=== PATIENT | female | born 1970 | race Caucasian/White ===

== ENCOUNTER 2016-09-28 10:04 | Emergency (ER) | payer MEDICAID ==
[~2016-09-28] VITALS: Wt 51.0 kg
[2016-09-28] MEDS ORDERED: ACYC800T57 PO (10:42)
[2016-09-28] MEDS ORDERED: TRAM-40 PO (10:42)
[2016-09-28] MEDS ORDERED: IBUP400T22 PO (10:42)
--- NOTE | 2016-09-28 10:45 | ERD ---
ER Documentation Chief Complaint Date/Time DATE: 09/28/16 TIME: 10:44 Chief Complaint left side chest and back pain from rash noted onset yesterday HPI This 46-year-old female has had left upper back pain and a rash progressing over the last 2 days. She denies fevers, vomiting, shortness breath or chest pain. ROS All systems reviewed and are negative except as per history of present illness. Medications Home Meds Active Scripts Ibuprofen* (Motrin*) 400 Mg Tab, 400 MG PO Q6H Y for PAIN, #20 TAB Prov:NORMAN STOREY MD 09/28/16 Tramadol Hcl* (Ultram*) 50 Mg Tablet, 50 MG PO Q6H Y for PAIN, #20 TAB Prov:NORMAN STOREY MD 09/28/16 Acyclovir* (Zovirax*) 800 Mg Tablet, 800 MG PO 5 TIMES DAILY for 7 Days, TAB Prov:NORMAN STOREY MD 09/28/16 PMhx/Soc Medical and Surgical Hx: pt denies Medical Hx, pt denies Surgical Hx Hx Alcohol Use: No Hx Substance Use: No Hx Tobacco Use: No Physical Exam Vitals Vital Signs Date Time Temp Pulse Resp B/P Pulse Ox O2 Delivery O2 Flow Rate FiO2 09/28/16 10:08 98.8 80 21 140/81 98 Physical Exam Const: [] Alert, [id number]. Head: Atraumatic Eyes: Normal Conjunctiva ENT: Normal External Ears, Nose and Mouth. Neck: Full range of motion..~ No meningismus. Resp: Clear to auscultation bilaterally Cardio: Regular rate and rhythm, no murmurs Abd: Soft, non tender, non distended. Normal bowel sounds Skin: No petechiae or purpura. There is a vesicular dermatomal rash in the left upper back. There is no streaking or induration. Back: No midline or flank tenderness Ext: No cyanosis, or edema Neur: Awake and alert Psych: Normal Mood and Affect Procedures/MDM Patient signs and symptoms of incompetent herpes zoster. She will treated with tramadol, acyclovir and ibuprofen. The patient was stable with no new complaints during the ER course. Clinically, there is no current evidence to suggest meningitis, sepsis, acute abdomen, pneumonia, acute coronary syndrome, pulmonary embolism, or any other emergent condition appearing to require further evaluation or hospitalization. The patient should certainly return for any new or worsening symptoms per the aftercare instructions. They should otherwise follow-up with her primary care doctor for reevaluation this week. Departure Diagnosis: Primary Impression: Zoster Herpes zoster complications: without complications Qualified Code: B02.9 - Herpes zoster without complication Condition: Stable Patient Instructions: Herpes Zoster Additional Instructions: Recheck for new or worsening symptoms or primary care doctor. NORMAN STOREY MD Sep 28, 2016 10:45
== END 2016-09-28 10:52 | disposition home or self-care (01) ==
LOC: FTE 10:04
DX: B02.9 Zoster without complications (principal)
CPT/HCPCS: 99283